=== PATIENT | male | born 2000 | race Hispanic/Latino ===

== ENCOUNTER 2021-10-21 16:53 | Emergency (ER) | payer OTHER ==
[2021-10-21 17:50] LABS: #Eosinphils 0.2 10x3/uL (0.0-0.5); #Monocytes 0.7 10x3/uL (0.0-1.1); #Neutrophils 5.2 10x3/uL (1.5-8.4); %Basophils 0.2 % (0.0-2.0); %Eosinophils 2.2 % (0.0-6.0); %Lymphocytes 25.2 % (18.0-47.0); %Monocytes 8.1 % (0.0-10.0); %Neutrophils 64.1 % (40.0-75.0); Hemoglobin 15.3 g/dL (13.5-17.5); Mean Corpuscular HGB CONC 34.3 g/dL (32.0-36.0); Mean Corpuscular Hemoglobin 30.1 pg (27.0-33.0); Mean Corpuscular Volume 87.6 fl (81.2-95.1); Mean Platelet Volume 8.3 fl (7.4-10.4); Platelet Count 455 10x3/uL (150-450); RBC Distribution Width 12.4 % (11.5-14.5); Red Blood Cell (RBC) Count 5.09 10x6/uL (4.32-5.72); White Blood Cell (WBC) Count 8.1 10x3/uL (3.5-10.5)
[2021-10-21 18:02] LABS: ALT (SGPT) 41 U/L (8-55); AST (SGOT) 25 U/L (5-34); Albumin 4.4 g/dL (3.5-5.0); Alkaline Phosphatase 74 U/L (40-110); Anion Gap 14 mmol/L (10-20); BUN (Urea Nitrogen) 10 mg/dL (8.9-20.6); Bilirubin, Total 0.5 mg/dL (0.2-1.2); Calc. Creatinine Clearance 0 mL/min (70-130); Calcium 9.3 mg/dL (7.8-10.44); Carbon Dioxide 25 mmol/L (22-29); Chloride 104 mmol/L (98-107); Globulin 3.1 g/dL (2.4-3.5); Glucose 109 mg/dL (70-105); Potassium 3.9 mmol/L (3.5-5.1); Protein, Total 7.5 g/dL (6.0-8.3); Sodium 139 mmol/L (136-145)
== END 2021-10-21 22:12 | disposition home or self-care (01) ==
LOC: CSHERS 16:53
DX: L97.319 Non-pressure chronic ulcer of right ankle with unspecified severity (principal); M25.571 Pain in right ankle and joints of right foot
CPT/HCPCS: 36415; 80053; 83605; 85025; 85652; 86140; 96365; 96366; J3370